=== PATIENT | male | born 1995 | race Caucasian/White ===

== ENCOUNTER 2017-02-05 19:04 | Emergency (ER) | payer OTHER ==
[~2017-02-05] VITALS: Ht 170.2 cm; Wt 81.8 kg
[2017-02-05 19:06] VITALS: BP 123/60; PULSE 76; TEMP 98.1
[2017-02-05] MEDS ORDERED: NORCO 325 MG-7.1 TAB PO (20:16)
== END 2017-02-05 20:30 | disposition home or self-care (01) ==
LOC: COL.ER 19:04
DX: S52.121A Displaced fracture of head of right radius, initial encounter for closed fracture (principal); W17.89XA Other fall from one level to another, initial encounter

== ENCOUNTER 2017-06-18 18:41 | Emergency (ER) | payer OTHER ==
[~2017-06-18] VITALS: Ht 170.2 cm; Wt 81.8 kg
[~2017-06-18 18:41] MED LIST: NORCO 325 MG-7.1 TAB PO
[2017-06-18 18:43] VITALS: BP 137/60; TEMP 98.8
[2017-06-18] MEDS ORDERED: PREDNISONE20 MG PO (19:56)
[2017-06-18] MEDS ORDERED: ZITHROMAX 250M250 MG PO (19:56)
[2017-06-18 20:02] VITALS: PULSE 62
== END 2017-06-18 20:03 | disposition home or self-care (01) ==
LOC: COL.ER 18:41
DX: J20.9 Acute bronchitis, unspecified (principal)
CPT/HCPCS: J7512

== ENCOUNTER 2019-02-11 13:42 | Emergency (ER) | payer SELFPAY ==
[~2019-02-11] VITALS: Ht 170.2 cm; Wt 81.8 kg
[~2019-02-11 13:42] MED LIST changes: +PREDNISONE20 MG PO; +ZITHROMAX 250M250 MG PO
[2019-02-11 13:55] VITALS: BP 141/69
[2019-02-11 14:48] VITALS: PULSE 78; TEMP 97.1
== END 2019-02-11 14:48 | disposition home or self-care (01) ==
LOC: COL.ER 13:42
DX: S01.511A Laceration without foreign body of lip, initial encounter (principal); L08.9 Local infection of the skin and subcutaneous tissue, unspecified; F17.220 Nicotine dependence, chewing tobacco, uncomplicated; Z23 Encounter for immunization; V80.018A Animal-rider injured by fall from or being thrown from other animal in noncollision accident, initial encounter; Y93.I9 Activity, other involving external motion; Y92.39 Other specified sports and athletic area as the place of occurrence of the external cause
CPT/HCPCS: J0696

== ENCOUNTER 2019-04-03 10:02 | Emergency (ER) | payer SELFPAY ==
[~2019-04-03] VITALS: Ht 170.2 cm; Wt 77.3 kg
[2019-04-03 10:14] VITALS: BP 126/71; TEMP 97.7
[2019-04-03] MEDS ORDERED: FLONASEALLERGY NS (11:10)
[2019-04-03] MEDS ORDERED: ZYRTEC 10MG10 MG PO (11:10)
[2019-04-03 11:20] VITALS: PULSE 61
== END 2019-04-03 11:20 | disposition home or self-care (01) ==
LOC: COL.ER 10:02
DX: J34.89 Other specified disorders of nose and nasal sinuses (principal); Z79.52 Long term (current) use of systemic steroids